=== PATIENT | female | born 1940 | race African-American/Black ===

== ENCOUNTER → 2017-09-24 | Outpatient (CLI) | payer OTHER | END | disposition home or self-care (01) | LOC: RAD 11:50 | DX: J43.9 Emphysema, unspecified (principal); J84.10 Pulmonary fibrosis, unspecified | CPT/HCPCS: 71046 ==

== ENCOUNTER → 2017-10-06 | Outpatient (CLI) | payer OTHER | END | disposition home or self-care (01) | LOC: CT 12:14 | DX: J43.2 Centrilobular emphysema (principal); J84.10 Pulmonary fibrosis, unspecified; I25.10 Atherosclerotic heart disease of native coronary artery without angina pectoris; Z90.49 Acquired absence of other specified parts of digestive tract | CPT/HCPCS: 71250 ==

== ENCOUNTER → 2017-11-20 | Outpatient (CLI) | payer OTHER | END | disposition home or self-care (01) | LOC: ECHO 12:30 | DX: I07.1 Rheumatic tricuspid insufficiency (principal); J44.9 Chronic obstructive pulmonary disease, unspecified; R06.09 Other forms of dyspnea | CPT/HCPCS: 93306 ==

== ENCOUNTER → 2020-11-06 | Outpatient (CLI) | payer MEDICARE ==
[2015-01-25 13:35] VITALS: BP 176/82
[~2020-11-06] MED LIST: ALBU2.5V8 IH; AMLO-187 PO; ATOR20TA58 PO; FLUO20CA20 PO; FLUT1DIS5 IH; LEVO50TA5 PO; LOSA100T14 PO; METF500T16 PO; METO-239 PO; OXYGEN; POTA20TA12 PO; TIOT18CA IH; TRIA1TAB3 PO
--- NOTE | 2020-11-06 13:29 | KCIC ---
INDICATION: Screening for osteopenia/osteoporosis. Postmenopausal evaluation. COMPARISON: None. TECHNIQUE: Bone densitometry was performed through the lumbar spine and proximal femur. IMPRESSION: Lumbar Spine: BMD: 0.65 T-Score: -3.6 Range: Osteoporotic Proximal Femur: BMD: 0.71 T-Score: -1.9 Range: Osteopenic World [employer] Organization Criteria for Bone Density: T-Score: > -1.0: Normal Range < -1.0 to -2.5: Osteopenic Range < -2.5: Osteoporotic Range Electronically signed by: Jono Galvez MD (11/06/2020 1:26 PM) [id number]
== END ==
LOC: KCIC DEXA 12:29
PROVIDERS: ATTEND Family Medicine
DX: M81.0 Age-related osteoporosis without current pathological fracture (principal)
CPT/HCPCS: 77080